=== PATIENT | male | born 1945 | race Caucasian/White ===

== ENCOUNTER 2016-12-06 06:07 | Inpatient (IN) | payer MEDICARE, BC ==
[2016-12-06] VITALS (16 sets, daily range): BP systolic 127–202; BP diastolic 65–101; PULSE 83–112; RESP 16–22; TEMP 97.8–98.5; O2SAT 95–99
[~2016-12-06] VITALS: Ht 180.3 cm; Wt 88.3 kg
[~2016-12-06 06:07] MED LIST: ALLO300T2 PO; ASPI325T PO; ENAL20TA PO; FENO50TA PO; GLUC750C PO; INDO50CA PO; METO25TA6 PO; MULT1TAB84 PO
[2016-12-06] MEDS ORDERED: SODIUM CHLORIDE 0.9% FLUSH 10 ML FLUSH IVF PRN (06:30)
[2016-12-06] MEDS ORDERED: FISH1000 (06:34)
[2016-12-06] MEDS ORDERED: MULTTAB67 PO (06:35)
--- NOTE | 2016-12-06 06:52 | RADRPT ---
EXAM DATE/TIME: 12/06/2016 06:32 [facility] COMPARISON: No previous studies available for comparison. INDICATIONS : Altered mental status, facial droop. RADIATION DOSE: 41.65 CTDIvol (mGy) MEDICAL HISTORY : Non-responsive. SURGICAL HISTORY : Non-responsive. ENCOUNTER: Initial ACUITY: 1 day PAIN SCALE: 0/10 LOCATION: cranial TECHNIQUE: Multiple contiguous axial images were obtained of the head. Using automated exposure control and adj ustment of the mA and/or kV according to patient size, radiation dose was kept as low as reasonably a chievable to obtain optimal diagnostic quality images. DICOM format image data is available electro nically for review and comparison. FINDINGS: CEREBRUM: The ventricles are normal for age. No evidence of midline shift, mass lesion, hemorrhage or acute in farction. No extra-axial fluid collections are seen. POSTERIOR FOSSA: The cerebellum and brainstem are intact. The 4th ventricle is midline. The cerebellopontine angle i s unremarkable. EXTRACRANIAL: The visualized portion of the orbits is intact. SKULL: The calvaria is intact. No evidence of skull fracture. CONCLUSION: Normal examination. Kwabena Lu MD on December 06, 2016 at 6:50 Board Certified Radiologist. This report was verified electronically.
--- NOTE | 2016-12-06 06:57 | PD ---
HPI Chief Complaint: Fall Time Seen by Provider: 06:16 Travel History International Travel<30 days: No Contact w/Intl Traveler<30days: No Traveled to known affect area: No History of Present Illness HPI The patient 71 years old. He woke up this morning and fell to the ground. His noticed slurred speech and therefore brought into the ER. In the ER we can observe nasolabial depression left side. Last seen normal was approximately 1 AM, four and a half hours prior to ER arrival. Location neurologic. Timing constant. Severity mild. The patient has a history of A. fib. He takes aspirin but no other anticoagulation. PFSH Past Medical History Arthritis: Yes (HX GOUT) Cardiovascular Problems: Yes (A-FIB, HTN) High Cholesterol: Yes Diminished Hearing: No Gastrointestinal Disorders: Yes (COLONSCOPY 2003) Medical other: Yes (PERITONITIS ) Tetanus Vaccination: > 5 Years Influenza Vaccination: Yes Past Surgical History Appendectomy: Yes Other Surgery: Yes (REMOVAL OF BENIGN CYST FROM UPPER BACK ) Social History Alcohol Use: Yes (DAILY ) Tobacco Use: No Substance Use: No Allergies-Medications (Allergen,Severity, Reaction): Coded Allergies: Percocet (Verified Allergy, Intermediate, 12/06/16) HEADACHE AND DIDN'T RELIEVE PAIN Lisinopril (Verified Adverse Reaction, Intermediate, palpitations that dont occur on enalapril, 12/06/16) Reported Meds & Prescriptions Reported Meds & Active Scripts Active Tricor (Fenofibrate) 145 Mg Tab 145 Mg PO DAILY Takw with food. Enalapril (Enalapril Maleate) 20 Mg Tab 20 Mg PO BID Reported Multiple Vitamin 1 Tab 1 Tab PO DAILY Fish Oil ([place]-3 Fatty Acids) 1,000 Mg Cap Glucosamine (Glucosamine Sulfate) 750 Mg Cap 750 Mg PO BID Indomethacin 50 Mg Cap 50 Mg PO TID Take with food, milk, or antacids to decrease stomach adverse effects. Aspirin 325 Mg Tab 325 Mg PO DAILY Metoprolol Succinate ER 24 HR (Metoprolol Succinate) 25 Mg Tab 25 Mg PO DAILY using 1/2 tab tid -38mg/d total dose Allopurinol 300 Mg Tab 300 Mg PO DAILY Review of Systems Except as stated in HPI: all other systems reviewed are Neg Physical Exam Narrative GENERAL: 71-year-old male well-nourished well-developed SKIN: Warm and dry. HEAD: Atraumatic. Normocephalic. EYES: Pupils equal and round. No scleral icterus. No injection or drainage. ENT: No nasal bleeding or discharge. Mucous membranes pink and moist. NECK: Trachea midline. No JVD. CARDIOVASCULAR: Tachycardia with a rate of 111, irregular rhythm. RESPIRATORY: No accessory muscle use. Clear to auscultation. Breath sounds equal bilaterally. GASTROINTESTINAL: Abdomen soft, non-tender, nondistended. Hepatic and splenic margins not palpable. MUSCULOSKELETAL: Extremities without clubbing, cyanosis, or edema. No obvious deformities. NEUROLOGICAL: Awake and alert. There is depression of the nasolabial fold on the left side. The patient's speech is normal. His memory mentation is normal. There is no upper or lower extremity motor deficit. PSYCHIATRIC: Appropriate mood and affect; insight and judgment normal. Data Data Last Documented VS Vital Signs Date Time Temp Pulse Resp B/P Pulse Ox O2 Delivery O2 Flow Rate FiO2 12/06/16 09:14 106 16 147/85 95 Nasal Cannula 2 12/06/16 06:10 98.1 Vital signs reviewed Orders Electrocardiogram (12/06/16 06:28) Prothrombin Time / Inr (Pt) (12/06/16 06:28) Act Partial Throm Time (Ptt) (12/06/16 06:28) Complete Blood Count With Diff (12/06/16 06:28) Basic Metabolic Panel (Bmp) (12/06/16 06:28) Creatine Kinase (Cpk) (12/06/16 06:28) Drug Screen, Random Urine (12/06/16 06:28) Troponin I (12/06/16 06:28) Urinalysis - C+S If Indicated (12/06/16 06:28) Ct Brain W/O Iv Contrast(Rout) (12/06/16 06:28) Chest, Single Ap (12/06/16 06:28) Ecg Monitoring (12/06/16 06:28) Iv Access Insert/Monitor (12/06/16 06:28) Oxygen Administration (12/06/16 06:28) Oximetry (12/06/16 06:28) Blood Glucose (12/06/16 06:28) Sodium Chloride 0.9% Flush (Ns Flush) (12/06/16 06:30) Nicardipine Inj (Cardene Inj) (12/06/16 06:43) Nicardipine Inj (Cardene Inj) (12/06/16 07:15) Mri Brain W/O Contrast (12/06/16 08:13) Mra Brain W/O Contrast (Cow) (12/06/16 08:13) Mra Carotids W Contrast (12/06/16 08:13) Consult Neurology (12/06/16 ) Consult Cardiology (12/06/16 ) (Hub Use Only)Inp Phy Cons/Ref (12/06/16 ) (Hub Use Only)Inp Phy Cons/Ref (12/06/16 ) Admit Order (Ed Use Only) (12/06/16 09:17) Labs Laboratory Tests Test 12/06/16 12/06/16 06:30 07:40 White Blood Count 7.0 TH/MM3 Red Blood Count 4.84 MIL/MM3 Hemoglobin 16.0 GM/DL Hematocrit 46.5 % Mean Corpuscular Volume 96.0 FL Mean Corpuscular Hemoglobin 33.0 PG Mean Corpuscular Hemoglobin 34.3 % Concent Red Cell Distribution Width 13.1 % Platelet Count 188 TH/MM3 Mean Platelet Volume 9.0 FL Neutrophils (%) (Auto) 75.8 % Lymphocytes (%) (Auto) 15.8 % Monocytes (%) (Auto) 6.1 % Eosinophils (%) (Auto) 1.5 % Basophils (%) (Auto) 0.8 % Neutrophils # (Auto) 5.3 TH/MM3 Lymphocytes # (Auto) 1.1 TH/MM3 Monocytes # (Auto) 0.4 TH/MM3 Eosinophils # (Auto) 0.1 TH/MM3 Basophils # (Auto) 0.1 TH/MM3 CBC Comment DIFF FINAL Differential Comment Prothrombin Time 11.5 SEC Prothromb Time International 1.0 RATIO Ratio Activated Partial 24.9 SEC Thromboplast Time Sodium Level 142 MEQ/L Potassium Level 3.6 MEQ/L Chloride Level 107 MEQ/L Carbon Dioxide Level 26.8 MEQ/L Anion Gap 8 MEQ/L Blood Urea Nitrogen 12 MG/DL Creatinine 0.76 MG/DL Estimat Glomerular Filtration 101 ML/MIN Rate Random Glucose 107 MG/DL Calcium Level 8.7 MG/DL Total Creatine Kinase 92 U/L Troponin I LESS THAN 0.02 NG/ML Urine Color LIGHT-YELLOW Urine Turbidity CLEAR Urine pH 6.5 Urine Specific [place] 1.006 Urine Protein TRACE mg/dL Urine Glucose (UA) NEG mg/dL Urine Ketones NEG mg/dL Urine Occult Blood NEG Urine Nitrite NEG Urine Bilirubin NEG Urine Urobilinogen LESS THAN 2.0 MG/DL Urine Leukocyte Esterase NEG Urine RBC LESS THAN 1 /hpf Urine WBC 1 /hpf Microscopic Urinalysis Comment CATH-CULT NOT IND Urine Opiates Screen NEG Urine Barbiturates Screen NEG Urine Amphetamines Screen NEG Urine Benzodiazepines Screen NEG Urine Cocaine Screen NEG Urine Cannabinoids Screen NEG MDM Medical Decision Making Medical Screen Exam Complete: Yes Emergency Medical Condition: Yes Medical Record Reviewed: Yes Differential Diagnosis Stroke, TIA, Jeffers's palsy, hypertensive encephalopathy Narrative Course CT head: No bleed The case discussed with oncoming provider at 7 AM to follow up blood work and admit to the medicine resident service. EKG reveals atrial fibrillation with a rate of [address] changes Devin Sanders MD Dec 06, 2016 06:57
[2016-12-06 06:58] LABS: AUTOMATED NEUTROPHIL # 5.3 TH/MM3 (1.8-7.7); BASOPHIL # 0.1 TH/MM3 (0-0.2); BASOPHIL % 0.8 % (0.0-2.0); EOSINOPHIL # 0.1 TH/MM3 (0-0.4); EOSINOPHIL % 1.5 % (0.0-4.0); HEMATOCRIT 46.5 % (39.0-51.0); HEMO FLAGS DIFF FINAL; LYMPH % 15.8 % (9.0-44.0); LYMPHOCYTE # 1.1 TH/MM3 (1.0-4.8); MEAN CORPUSCULAR HGB CONC 34.3 % (32.0-36.0); MONO % 6.1 % (0.0-8.0); NEUT % 75.8 % (16.0-70.0); PLATELET COUNT 188 TH/MM3 (150-450); RED BLOOD COUNT 4.84 MIL/MM3 (4.50-5.90); RED CELL DISTRIBUTION WIDTH 13.1 % (11.6-17.2)
--- NOTE | 2016-12-06 07:09 | RADRPT ---
EXAM DATE/TIME: 12/06/2016 06:46 [facility] COMPARISON: No previous studies available for comparison. INDICATIONS : Possible stroke , altered mental status with facial droop. MEDICAL HISTORY : None. SURGICAL HISTORY : None. ENCOUNTER: Initial ACUITY: 1 day PAIN SCORE: 3/10 LOCATION: Bilateral upper chest FINDINGS: The lungs are clear without infiltrate, nodule, or mass. There is no appreciable pleural effusion fo r technique. There are atherosclerotic calcifications of the aorta due to chronic atherosclerotic di sease. Borderline cardiomegaly seen. CONCLUSION: No acute cardiopulmonary disease and borderline cardiomegaly. Blane Knott MD on December 06, 2016 at 7:07 Board Certified Radiologist. This report was verified electronically.
[2016-12-06 07:10] LABS: APTT (PATIENT) 24.9 SEC (24.3-30.1); PROTHROMBIN TIME - PATIENT 11.5 SEC (9.8-11.6)
[2016-12-06] MEDS ORDERED: niCARdipine INJ 25 MG in SODIUM CHLOR 0.9% 250 ML INJ 250 ML IV SCH (07:15)
[2016-12-06 07:36] LABS: ANION GAP 8 MEQ/L (5-15); BICARBONATE 26.8 MEQ/L (21.0-32.0); BLOOD UREA NITROGEN 12 MG/DL (7-18); CHLORIDE 107 MEQ/L (98-107); GLOMERULAR FILTRATION RATE 101 ML/MIN (>89); POTASSIUM 3.6 MEQ/L (3.5-5.1); SODIUM (NA) 142 MEQ/L (136-145)
[2016-12-06 07:58] LABS: CREATINE KINASE 92 U/L (39-308)
[2016-12-06 08:04] LABS: BLOOD, URINE NEG (NEG); GLUCOSE,URINE NEG (NEG); KETONE, URINE NEG (NEG); NITRITE,URINE NEG (NEG); PH, URINE 6.5 (5.0-8.5); URINE COLOR LIGHT-YELLOW (YELLW/STRAW)
[2016-12-06 08:09] LABS: COMMENT (UR) CATH-CULT NOT IND; CULTURE IF INDICATED CATH CULTURE NOT IND
[2016-12-06 08:12] LABS: AMPHETAMINE, URINE NEG (NEG); BARBITURATES, URINE NEG (NEG); COCAINE, URINE NEG (NEG)
--- NOTE | 2016-12-06 08:12 | PD ---
Physical Exam Narrative Patient was seen by ED physician and signed out to me. Data Data Last Documented VS Vital Signs Date Time Temp Pulse Resp B/P Pulse Ox O2 Delivery O2 Flow Rate FiO2 12/06/16 06:49 91 16 190/91 97 Room Air 12/06/16 06:10 98.1 Orders Electrocardiogram (12/06/16 06:28) Prothrombin Time / Inr (Pt) (12/06/16 06:28) Act Partial Throm Time (Ptt) (12/06/16 06:28) Complete Blood Count With Diff (12/06/16 06:28) Basic Metabolic Panel (Bmp) (12/06/16 06:28) Creatine Kinase (Cpk) (12/06/16 06:28) Drug Screen, Random Urine (12/06/16 06:28) Troponin I (12/06/16 06:28) Urinalysis - C+S If Indicated (12/06/16 06:28) Ct Brain W/O Iv Contrast(Rout) (12/06/16 06:28) Chest, Single Ap (12/06/16 06:28) Ecg Monitoring (12/06/16 06:28) Iv Access Insert/Monitor (12/06/16 06:28) Oxygen Administration (12/06/16 06:28) Oximetry (12/06/16 06:28) Blood Glucose (12/06/16 06:28) Sodium Chloride 0.9% Flush (Ns Flush) (12/06/16 06:30) Nicardipine Inj (Cardene Inj) (12/06/16 06:43) Nicardipine Inj (Cardene Inj) (12/06/16 07:15) Labs Laboratory Tests Test 12/06/16 12/06/16 06:30 07:40 White Blood Count 7.0 TH/MM3 Red Blood Count 4.84 MIL/MM3 Hemoglobin 16.0 GM/DL Hematocrit 46.5 % Mean Corpuscular Volume 96.0 FL Mean Corpuscular Hemoglobin 33.0 PG Mean Corpuscular Hemoglobin 34.3 % Concent Red Cell Distribution Width 13.1 % Platelet Count 188 TH/MM3 Mean Platelet Volume 9.0 FL Neutrophils (%) (Auto) 75.8 % Lymphocytes (%) (Auto) 15.8 % Monocytes (%) (Auto) 6.1 % Eosinophils (%) (Auto) 1.5 % Basophils (%) (Auto) 0.8 % Neutrophils # (Auto) 5.3 TH/MM3 Lymphocytes # (Auto) 1.1 TH/MM3 Monocytes # (Auto) 0.4 TH/MM3 Eosinophils # (Auto) 0.1 TH/MM3 Basophils # (Auto) 0.1 TH/MM3 CBC Comment DIFF FINAL Differential Comment Prothrombin Time 11.5 SEC Prothromb Time International 1.0 RATIO Ratio Activated Partial 24.9 SEC Thromboplast Time Sodium Level 142 MEQ/L Potassium Level 3.6 MEQ/L Chloride Level 107 MEQ/L Carbon Dioxide Level 26.8 MEQ/L Anion Gap 8 MEQ/L Blood Urea Nitrogen 12 MG/DL Creatinine 0.76 MG/DL Estimat Glomerular Filtration 101 ML/MIN Rate Random Glucose 107 MG/DL Calcium Level 8.7 MG/DL Total Creatine Kinase 92 U/L Troponin I LESS THAN 0.02 NG/ML Urine Color LIGHT-YELLOW Urine Turbidity CLEAR Urine pH 6.5 Urine Specific [place] 1.006 Urine Protein TRACE mg/dL Urine Glucose (UA) NEG mg/dL Urine Ketones NEG mg/dL Urine Occult Blood NEG Urine Nitrite NEG Urine Bilirubin NEG Urine Urobilinogen LESS THAN 2.0 MG/DL Urine Leukocyte Esterase NEG Urine RBC LESS THAN 1 /hpf Urine WBC 1 /hpf Microscopic Urinalysis Comment CATH-CULT NOT IND MDM Supervised Visit with FRANCISCO: No Interpretation(s) Last Impressions Head CT 12/06/16627 Signed Impressions: Service Date/Time: Tuesday, December 06, 2016 06:32 - CONCLUSION: Normal examination. Kwabena Lu MD Chest X-Ray 12/06/16627 Signed Impressions: Service Date/Time: Tuesday, December 06, 2016 06:46 - CONCLUSION: No acute cardiopulmonary disease and borderline cardiomegaly. Blane Knott MD 8:11 AM. CBC within normal limit. BMP within normal limit. Cardiac enzymes are normal. UA is negative. Diagnosis Primary Impression: Acute CVA (cerebrovascular accident) Duc Spear MD Dec 06, 2016 08:12
--- NOTE | 2016-12-06 09:34 | HHI.HP ---
[facility] Service Family Medicine Primary Care Physician David Duffy MD Admission Diagnosis acute CVA Diagnoses: Chief Complaint: fall International Travel<30 Days: No Contact w/Intl Traveler<30days: No Known Affected Area: No History of Present Illness Patient is a 71-year-old male with history of atrial fibrillation and hypertension, presents after fall. Patient is accompanied by . They state that at 525 this morning, patient woke up. He went to walk to the bathroom and fell after getting out of bed. States he hit his side of his head and his knee on the rug. Denies any loss of consciousness. states that his speech was slurred and that he was dragging his foot. They also took his blood pressure at that time, and stated it was elevated 180s/100. At that time, brought him to the ED. He doesn't remember any weakness, and feels fine now. Denies any numbness or tingling. He feels his speech is back to normal, as does his . Denies any headache. Denies any trouble walking now, has been to the bathroom several times. No changes in vision. Has not had anything like this happen before. No history of stroke or DVT. Has a history of atrial fibrillation, and sees yardage control operator Dr. Patrick. He is currently on aspirin daily, but refuses oral anticoagulation due to concerns about reversal. Quit smoking 40 years ago. Denies any fever/chills, nausea/vomiting, chest pain, shortness of breath, leg pain. (Sanjiv Lcuas MD R1) Review of Systems Constitutional: DENIES: Fever, Weight loss, Chills, Dizziness Endocrine: DENIES: Heat/cold intolerance Eyes: DENIES: Diplopia, Eye pain, Vision loss Ears, nose, mouth, throat: DENIES: Hearing loss, Ear Pain Respiratory: DENIES: Cough, Shortness of breath Cardiovascular: COMPLAINS OF: Palpitations, DENIES: Chest pain, Syncope Gastrointestinal: DENIES: Abdominal pain, Black stools, Bloody stools, Constipation, Diarrhea, Nausea, Vomiting Genitourinary: DENIES: Urinary frequency, Dysuria Musculoskeletal: DENIES: Joint pain, Muscle aches Integumentary: DENIES: Pruritus, Rash Neurologic: DENIES: Abnormal gait, Headache, Localized weakness, Paresthesias, Seizures Psychiatric: DENIES: Confusion, Mood changes (Sanjiv Lucas MD R1) Past Family Social History Past Medical History HTN Afib HLD Arthritis Past Surgical History 12/10/01 Rt. Rotator cuff repair. Pt. was injured in a fall. 1999-Removal of benign fatty cyst from upper back 1991 and 1994 Cataract removal Removal of several sebaceous cysts and moles 1951ruptured appendix and peritonitis Reported Medications Reported Meds & Active Scripts Active Tricor (Fenofibrate) 145 Mg Tab 145 Mg PO DAILY Take with food. Enalapril (Enalapril Maleate) 20 Mg Tab 20 Mg PO BID Reported Multiple Vitamin 1 Tab 1 Tab PO DAILY Fish Oil ([place]-3 Fatty Acids) 1,000 Mg Cap Glucosamine (Glucosamine Sulfate) 750 Mg Cap 750 Mg PO BID Indomethacin 50 Mg Cap 50 Mg PO TID Take with food, milk, or antacids to decrease stomach adverse effects. Aspirin 325 Mg Tab 325 Mg PO DAILY Metoprolol Succinate ER 24 HR (Metoprolol Succinate) 25 Mg Tab 25 Mg PO DAILY using 1/2 tab tid -38mg/d total dose Allopurinol 300 Mg Tab 300 Mg PO DAILY (Sanjiv Lucas MD R1) Allergies: Coded Allergies: Percocet (Verified Allergy, Intermediate, 12/06/16) HEADACHE AND DIDN'T RELIEVE PAIN Lisinopril (Verified Adverse Reaction, Intermediate, palpitations that dont occur on enalapril, 12/06/16) Active Ordered Medications Active Medications Nicardipine HCl 25 mg 25 mg STK-MED ONCE .ROUTE; Start 12/06/16 at 06:43; Stop 12/06/16 at 06:44; Status DC Nicardipine HCl/ Sodium Chloride (Cardene Inj/NS 250 ml Inj) 260 ml @ 0 mls/hr TITRATE IV Last administered on 12/06/16t 07:10; Admin Dose 0 MLS/HR; Start at 07:15 Sodium Chloride (NS Flush) 2 ml UNSCH PRN IVF; Start 12/06/16 at 06:30 Family History No FH of stroke Father- of MS at age 63 Mother- at age 83 from respiratory failure, hx of HTN Social History Quit smoking 40years ago 2-3 beers/day Denies illicit drug use (Sanjiv Lucas MD R1) Physical Exam Vital Signs Vital Signs Date Time Temp Pulse Resp B/P Pulse Ox O2 Delivery O2 Flow Rate FiO2 12/06/16 09:14 106 16 147/85 95 Nasal Cannula 2 12/06/16 09:01 147/85 12/06/16 08:46 142/74 12/06/16 06:49 91 16 190/91 97 Room Air 12/06/16 06:35 98 Room Air 12/06/16 06:35 98 Room Air 12/06/16 06:27 110 18 202/100 99 Room Air 12/06/16 06:10 98.1 107 16 194/101 97 Physical Exam GENERAL: This is a well-nourished, well-developed patient, in no apparent distress. SKIN: No rashes, ecchymoses or lesions. Cool and dry. HEAD: Atraumatic. Normocephalic. No temporal or scalp tenderness. EYES: Pupils equal round and reactive. Extraocular motions intact. No scleral icterus. No injection or drainage. ENT: No nasal discharge. Throat without erythema, tonsillar hypertrophy or exudate. Uvula midline. Airway patent. NECK: Trachea midline. No JVD or lymphadenopathy. Supple, nontender. CARDIOVASCULAR: Tachycardic up to 110. Irregular rhythm. RESPIRATORY: Clear to auscultation. Breath sounds equal bilaterally. No wheezes , rales, or rhonchi. GASTROINTESTINAL: Abdomen soft, non-tender, nondistended. No hepato-splenomegaly , or palpable masses. No guarding. MUSCULOSKELETAL: Extremities without clubbing, cyanosis, or edema. No joint tenderness, effusion, or edema noted. No calf tenderness. NEUROLOGICAL: Awake and alert. Oriented x3. Speech- Fluent. No dysarthria or dysphasia. Good focus, attention, and comprehension. Cranial nerves- 2 through 12 intact. Face- Mild nasolabial fold depression on left side, no overt facial droop. No tongue deviation. 5/5 strength in all muscle groups, upper and lower extremities. sensation intact bilaterally. Reflexes symmetric bilaterally. No neglect. Able to repeat phrases. Able to perform heel to espinal. Laboratory Laboratory Tests Test 12/06/16 12/06/16 06:30 07:40 White Blood Count 7.0 Red Blood Count 4.84 Hemoglobin 16.0 Hematocrit 46.5 Mean Corpuscular Volume 96.0 Mean Corpuscular Hemoglobin 33.0 Mean Corpuscular Hemoglobin 34.3 Concent Red Cell Distribution Width 13.1 Platelet Count 188 Mean Platelet Volume 9.0 Neutrophils (%) (Auto) 75.8 Lymphocytes (%) (Auto) 15.8 Monocytes (%) (Auto) 6.1 Eosinophils (%) (Auto) 1.5 Basophils (%) (Auto) 0.8 Neutrophils # (Auto) 5.3 Lymphocytes # (Auto) 1.1 Monocytes # (Auto) 0.4 Eosinophils # (Auto) 0.1 Basophils # (Auto) 0.1 CBC Comment DIFF FINAL Differential Comment Prothrombin Time 11.5 Prothromb Time International 1.0 Ratio Activated Partial 24.9 Thromboplast Time Sodium Level 142 Potassium Level 3.6 Chloride Level 107 Carbon Dioxide Level 26.8 Anion Gap 8 Blood Urea Nitrogen 12 Creatinine 0.76 Estimat Glomerular Filtration 101 Rate Random Glucose 107 Calcium Level 8.7 Total Creatine Kinase 92 Troponin I LESS THAN 0.02 Urine Color LIGHT-YELLOW Urine Turbidity CLEAR Urine pH 6.5 Urine Specific [place] 1.006 Urine Protein TRACE Urine Glucose (UA) NEG Urine Ketones NEG Urine Occult Blood NEG Urine Nitrite NEG Urine Bilirubin NEG Urine Urobilinogen LESS THAN 2.0 Urine Leukocyte Esterase NEG Urine RBC LESS THAN 1 Urine WBC 1 Microscopic Urinalysis Comment CATH-CULT NOT IND Urine Opiates Screen NEG Urine Barbiturates Screen NEG Urine Amphetamines Screen NEG Urine Benzodiazepines Screen NEG Urine Cocaine Screen NEG Urine Cannabinoids Screen NEG (Sanjiv Lucas MD R1) Result Diagram: 12/06/1662912/06/16629 Imaging Last Impressions Head CT 12/06/16627 Signed Impressions: Service Date/Time: Tuesday, December 06, 2016 06:32 - CONCLUSION: Normal examination. Kwabena Lu MD Chest X-Ray 12/06/16627 Signed Impressions: Service Date/Time: Tuesday, December 06, 2016 06:46 - CONCLUSION: No acute cardiopulmonary disease and borderline cardiomegaly. Blane Knott MD (Sanjiv Lucas MD R1) Assessment and Plan Assessment and Plan 71-year-old male with history of atrial fibrillation hypertension, presents after a fall with neurological symptoms. Patient with resolving neurological symptoms, most likely consistent with a TIA. We'll admit for workup and management. Code Status Full Discussed Condition With Dr. Duffy (Sanjiv Lucas MD R1) Attending Attestation THIS CASE WAS DISCUSSED WITH THE RESIDENT PHYSICIANS. I HAVE REVIEWED THE RECORD AND AGREE WITH THE ABOVE NOTE AND PLAN OF CARE WAS DISCUSSED. I HAVE AUTHORIZED THE ORDER FOR ADMISSION TO AN IN-PATIENT STATUS. (David Duffy MD) Problem List: (1) Acute CVA (cerebrovascular accident) Status: Acute Plan: Symptoms first began at 525 this morning. Most of the reported symptoms have resolved. Vascular risk factors include age, HTN, A-fib, and h/o smoking. Patient also has just been on aspirin, and refusing oral anticoagulation. On exam, patient with minimal left nasal labial fold depression. Otherwise, neurologically intact. CT was negative for bleeding. ABCD2 score of 4 points, puts pt in moderate risk for future stroke. -MRI brain to r/o ischemic stroke. -MRA brain and carotids ordered. -EKG shows atrial fibrillation. Initial troponin normal; ACS rule-out ordered -2D ECHO -B/c CT scan negative, continue Aspirin 325mg daily -Start atorvastatin daily. -Neuro checks q4 hrs. -Telemetry -HOB flat for 12 hrs -Bedrest with fall precautions. -Consult neurology, rehab medicine, PT/OT/ST and case management. -If pt passes bedside swallow, will allow for heart healthy diet. (2) Atrial fibrillation Status: Chronic Plan: Pt with chronic history of atrial fibrillation. Taking Enalapril and Metoprolol at home. Currently on Aspirin 325mg daily. Sees Dr. Patrick as his yardage control operator. Refuses oral anticoagulation, due to concerns about reversal. Presented in atrial fibrillation, and could be the cause of his neurologic symptoms. [id number]-Omln score of 2 before today, 4 after TIA symptoms, indicating need fo anticoagulation -Cardiology consulted,appreciate recs -Dr. Patrick will see pt -Continue ASA -Therapeutic lovenox, discuss transition to oral agent -Pt on Nicardine drip to control rate, will continue, while allowing for permissive hypertension -See further plan above (3) Essential hypertension Status: Acute Plan: Pt's blood pressure up to 202/100 on admission. Takes enalapril and metoprolol at home. -Will allow for permissive HTN, due to acute CVA -Hold home HTN meds (4) FEN Status: Acute Plan: Fluids: none Electrolytes: wnl, continue to monitor Nutrition: NPO, until passes swallow study DVT ppx: Lovenox (Sanjiv Lucas MD R1) Physician Certification 2 Midnight Certification Type: Admission for Inpatient Services Order for Inpatient Services The services are ordered in accordance with Medicare regulations or non- Medicare payer requirements, as applicable. In the case of services not specified as inpatient-only, they are appropriately provided as inpatient services in accordance with the 2-midnight benchmark. Estimated LOS (days): 2 days is the estimated time the patient will need to remain in the hospital, assuming treatment plan goals are met and no additional complications. Post-Hospital Plan: Home (Sanjiv Lucas MD R1) Problem Qualifiers (1) Atrial fibrillation: Qualified Code: I48.2 - Chronic atrial fibrillation Sanjiv Lucas MD R1 Dec 06, 2016 09:34 David Duffy MD Dec 06, 2016 13:31
[2016-12-06] MEDS ORDERED: DEXTROSE 50% IN WATER 50 ML VIAL(D50) IV PUSH PRN (10:00)
[2016-12-06] MEDS ORDERED: GLUCAGON 1 MG/ML VIAL OTHER PRN (10:00)
[2016-12-06] MEDS ORDERED: SODIUM CHLORIDE 0.9% FLUSH 5 ML FLUSH IV FLUSH PRN (10:00)
[2016-12-06] MEDS ORDERED: ACETAMINOPHEN 325 MG TAB PO PRN (10:15)
[2016-12-06] MEDS ORDERED: GADODIAMIDE PF 287 MG/ML 20 ML VIAL (for RAD MRI) IV ONE (10:42)
[2016-12-06] MEDS: INSULIN ASPART SUPPLEMENTAL SCALE SQ SCH ×3 (11:00→21:00)
[2016-12-06] MEDS ORDERED: ENOXAPARIN SODIUM 40 MG/0.4 ML SYRINGE SQ SCH (11:00)
--- NOTE | 2016-12-06 11:05 | RADRPT ---
EXAM DATE/TIME: 12/06/2016 10:04 [facility] COMPARISON: CT BRAIN W/O CONTRAST, December 06, 2016, 6:32. INDICATIONS : Right facial droop. MEDICAL HISTORY : Hypertension. SURGICAL HISTORY : Appendectomy. ENCOUNTER: Initial ACUITY: 1 day PAIN SCORE: 0/10 LOCATION: cranial TECHNIQUE: Multiplanar, multisequence MRI of the brain was performed without contrast. FINDINGS: There are areas of abnormal diffusion capacity in the right temporal and parietal lobes characte ristic of acute infarction without hemorrhage or mass effect. Slight degree of brain atrophy is seen. Slight periventricular white matter changes are seen nonspecific mostly consistent with chronic smal l vessel ischemic changes. CONCLUSION: Acute infarction in the right parietal and temporal lobes without hemorrhage or mass effect. Blane Knott MD on December 06, 2016 at 11:01 Board Certified Radiologist. This report was verified electronically.
--- NOTE | 2016-12-06 11:06 | RADRPT ---
EXAM DATE/TIME: 12/06/2016 10:04 [facility] COMPARISON: MRA BRAIN W/O CONTRAST, December 06, 2016, 10:04. MRI BRAIN W/O CONTRAST, December 06, 2016, 10:04. INDICATIONS : Right facial droop. CONTRAST: 20 cc Omniscan (gadodiamide) IV MEDICAL HISTORY : Hypertension. SURGICAL HISTORY : Appendectomy. ENCOUNTER: Initial ACUITY: 1 day PAIN SCORE: 0/10 LOCATION: neck Percent stenosis is calculated using the diameter of the stenotic region over the diameter of the nor mal distal internal carotid artery. TECHNIQUE: Bolus infused MRA of the extracranial circulation was performed using a neurovascular coil. Post pro cessing was performed including rotating subvolume maximum intensity projections of each carotid lizeth ry, rotating full volume maximum intensity projections of both carotid arteries, sagittal and coronal sliding thin slab reformations of each carotid artery, and left oblique sliding thin slab reformatio n through the aortic arch to include the origin of the arch branch vessels. FINDINGS: AORTIC ARCH: There is a three vessel origin of the great vessels from the aorta. No evidence of ostial narrowing. RIGHT CAROTID: The common carotid artery is intact. The carotid bulb has a normal configuration without ulceration or narrowing. The internal carotid artery lumen is smooth without stenosis. The external carotid ar daysi is intact. LEFT CAROTID: The common carotid artery is intact. The carotid bulb has a normal configuration without ulceration or narrowing. The internal carotid artery lumen is smooth without stenosis. The external carotid ar daysi is intact. VERTEBRALS: The vertebral arteries have a symmetric diameter. No stenotic lesions are seen. CONCLUSION: Normal examination. Blane Knott MD on December 06, 2016 at 11:03 Board Certified Radiologist. This report was verified electronically.
--- NOTE | 2016-12-06 11:09 | RADRPT ---
EXAM DATE/TIME: 12/06/2016 10:04 [facility] COMPARISON: No previous studies available for comparison. INDICATIONS : Right facial droop. MEDICAL HISTORY : Hypertension. SURGICAL HISTORY : Appendectomy. ENCOUNTER: Initial ACUITY: 1 day PAIN SCORE: 0/10 LOCATION: cranial Please note a normal MRA of the brain does not entirely exclude the possibility of a small aneurysm, nor the possibility of distal intracranial vessel disease. TECHNIQUE: 3D time of flight MRA was performed. Source images, multiplanar STS MIP, and 3D volume MIP reconstru ctions were reviewed. FINDINGS: No significant vascular malformations, vessel truncation or aneurysmal dilatations are seen except fo r slight atherosclerotic changes involving multiple branches bilaterally mainly the MCAs left DOCUMENT CONTROL CLERK. CONCLUSION: Slight atherosclerotic changes of distal branches bilaterally, otherwise unremarkable . Blane Knott MD on December 06, 2016 at 11:04 Board Certified Radiologist. This report was verified electronically.
[2016-12-06] MEDS: ASPIRIN 325 MG TAB PO SCH (12:00)
--- NOTE | 2016-12-06 12:24 | EKG ---
Date Performed: 12/06/2016 Time Performed: 06:25:52 PTAGE: 71 years EKG: ATRIAL FIBRILLATION WITH RAPID VENTRICULAR RESPONSE NONSPECIFIC ST & T-WAVE ABNORMALITY ABN ORMAL RHYTHM ECG NO PREVIOUS TRACING DOCTOR: Kevin Fuchs Interpretating Date/Time 12/06/2016 12:20:20
[2016-12-06] MEDS ORDERED: ENOXAPARIN SODIUM 100 MG/ML SYRINGE SQ SCH (12:30)
--- NOTE | 2016-12-06 13:29 | HHI.HP ---
[facility] Service Family Medicine Primary Care Physician David Duffy MD Admission Diagnosis acute CVA Diagnoses: (1) Acute CVA (cerebrovascular accident) (2) Atrial fibrillation (3) Essential hypertension (4) FEN International Travel<30 Days: No Contact w/Intl Traveler<30days: No Known Affected Area: No History of Present Illness 71-year-old male presented to the emergency department after a fall at home and noted left-sided weakness. He was apparently in normal health at approximately 1 AM when he went to bed, at 545 this morning he attempted to get out of bed and fell out of bed, hitting the side of his head and knee on the rug. Patient denies any loss of consciousness. At this time, states that his speech was slurred and that he was dragging his left foot. He also took his blood pressure at that time and stated that it was 180/100 and therefore brought him into the emergency department for evaluation of stroke. Since admission to the emergency department, states that his speech has returned to normal but continues to notice left-sided facial droop. Filippo himself has stated that he feels well at this time, that he feels back to normal. He denies any unilateral weakness, he denies any headaches, denies vision changes or double vision, denies nausea or vomiting, denies chest pain or palpitations. He has been out of bed and walk to the bathroom on his own without any difficulty. He has a history of atrial fibrillation for which she follows with Dr. Patrick. It had been recommended to him to be on anticoagulant therapy, however he has refused this in the past and is currently only taking a baby aspirin daily. He also has been instructed that he could benefit from statin therapy but has refused this in the past as well. Otherwise he has been a relatively healthy gentleman and has been very active. Review of Systems Eyes: DENIES: Blurred vision, Diplopia, Vision loss, Double Vision Ears, nose, mouth, throat: DENIES: Tinnitus, Vertigo, Hoarseness Respiratory: DENIES: Cough, Wheezing, Sputum production, Shortness of breath Cardiovascular: DENIES: Chest pain, Palpitations, Syncope, Dyspnea on Exertion , Lower Extremity Edema Gastrointestinal: DENIES: Abdominal pain, Nausea, Vomiting, Difficulty Swallowing Hematologic/lymphatic: DENIES: Bruising Neurologic: DENIES: Abnormal gait, Headache, Localized weakness, Paresthesias, Seizures, Speech Problems, Poor Balance Past Family Social History Past Medical History HTN Afib HLD Arthritis Past Surgical History 12/10/01 Rt. Rotator cuff repair. Pt. was injured in a fall. 1999-Removal of benign fatty cyst from upper back 1991 and 1994 Cataract removal Removal of several sebaceous cysts and moles 1951ruptured appendix and peritonitis Allergies: Coded Allergies: Percocet (Verified Allergy, Intermediate, 12/06/16) HEADACHE AND DIDN'T RELIEVE PAIN Lisinopril (Verified Adverse Reaction, Intermediate, palpitations that dont occur on enalapril, 12/06/16) Family History No FH of stroke Father- of [place] at age 63 Mother- at age 83 from respiratory failure, hx of HTN Social History Quit smoking 40years ago 2-3 beers/day Denies illicit drug use Physical Exam Vital Signs Vital Signs Date Time Temp Pulse Resp B/P Pulse Ox O2 Delivery O2 Flow Rate FiO2 12/06/16 12:26 112 20 148/75 98 Nasal Cannula 2 12/06/16 10:37 105 16 158/83 97 Nasal Cannula 2 12/06/16 10:10 108 16 127/65 97 Nasal Cannula 2 12/06/16 09:14 106 16 147/85 95 Nasal Cannula 2 12/06/16 09:01 147/85 12/06/16 08:46 142/74 12/06/16 06:49 91 16 190/91 97 Room Air 12/06/16 06:35 98 Room Air 12/06/16 06:35 98 Room Air 12/06/16 06:27 110 18 202/100 99 Room Air 12/06/16 06:10 98.1 107 16 194/101 97 Physical Exam GENERAL: This is a well-nourished, well-developed patient, in no apparent distress. SKIN: Abrasions over bilateral knees HEAD: Atraumatic. Normocephalic. EYES: Pupils equal round and reactive. Extraocular motions intact. No scleral icterus. No injection or drainage. NECK: Trachea midline. No JVD or lymphadenopathy. Supple, nontender. CARDIOVASCULAR: Tachycardic up to 105 while in room. Irregular rhythm. RESPIRATORY: Clear to auscultation. Breath sounds equal bilaterally. No wheezes , rales, or rhonchi. GASTROINTESTINAL: Abdomen soft, non-tender, nondistended. MUSCULOSKELETAL: Extremities without clubbing, cyanosis, or edema. NEUROLOGICAL: Awake and alert. Oriented x3. Speech- Fluent. No dysarthria or dysphasia. Good focus, attention, and comprehension. Cranial nerves- 2 through 12 intact. Face- Mild nasolabial fold depression on left side, no overt facial droop. No tongue deviation. 5/5 strength in all muscle groups, upper and lower extremities. sensation intact bilaterally. Reflexes symmetric bilaterally. No neglect. Able to repeat phrases. Able to perform heel to espinal. Negative pronator drift Laboratory Laboratory Tests Test 12/06/16 12/06/16 06:30 07:40 White Blood Count 7.0 Red Blood Count 4.84 Hemoglobin 16.0 Hematocrit 46.5 Mean Corpuscular Volume 96.0 Mean Corpuscular Hemoglobin 33.0 Mean Corpuscular Hemoglobin 34.3 Concent Red Cell Distribution Width 13.1 Platelet Count 188 Mean Platelet Volume 9.0 Neutrophils (%) (Auto) 75.8 Lymphocytes (%) (Auto) 15.8 Monocytes (%) (Auto) 6.1 Eosinophils (%) (Auto) 1.5 Basophils (%) (Auto) 0.8 Neutrophils # (Auto) 5.3 Lymphocytes # (Auto) 1.1 Monocytes # (Auto) 0.4 Eosinophils # (Auto) 0.1 Basophils # (Auto) 0.1 CBC Comment DIFF FINAL Differential Comment Prothrombin Time 11.5 Prothromb Time International 1.0 Ratio Activated Partial 24.9 Thromboplast Time Sodium Level 142 Potassium Level 3.6 Chloride Level 107 Carbon Dioxide Level 26.8 Anion Gap 8 Blood Urea Nitrogen 12 Creatinine 0.76 Estimat Glomerular Filtration 101 Rate Random Glucose 107 Calcium Level 8.7 Total Creatine Kinase 92 Troponin I LESS THAN 0.02 Urine Color LIGHT-YELLOW Urine Turbidity CLEAR Urine pH 6.5 Urine Specific [place] 1.006 Urine Protein TRACE Urine Glucose (UA) NEG Urine Ketones NEG Urine Occult Blood NEG Urine Nitrite NEG Urine Bilirubin NEG Urine Urobilinogen LESS THAN 2.0 Urine Leukocyte Esterase NEG Urine RBC LESS THAN 1 Urine WBC 1 Microscopic Urinalysis Comment CATH-CULT NOT IND Urine Opiates Screen NEG Urine Barbiturates Screen NEG Urine Amphetamines Screen NEG Urine Benzodiazepines Screen NEG Urine Cocaine Screen NEG Urine Cannabinoids Screen NEG Result Diagram: 7/22/17 0630 7/22/17 0630 Imaging Last 48 hours Impressions Neck Magnetic Resonance Angiography 12/06/16812 Signed Impressions: Service Date/Time: Tuesday, December 06, 2016 10:04 - CONCLUSION: Normal examination. Blane Knott MD Head Magnetic Resonance Angiography 12/06/16812 Signed Impressions: Service Date/Time: Tuesday, December 06, 2016 10:04 - CONCLUSION: Slight atherosclerotic changes of distal branches bilaterally, otherwise unremarkable. Blane Knott MD Brain MRI 12/06/16812 Signed Impressions: Service Date/Time: Tuesday, December 06, 2016 10:04 - CONCLUSION: Acute infarction in the right parietal and temporal lobes without hemorrhage or mass effect. Blane Knott MD Head CT 12/06/16627 Signed Impressions: Service Date/Time: Tuesday, December 06, 2016 06:32 - CONCLUSION: Normal examination. Kwabena Lu MD Chest X-Ray 12/06/16627 Signed Impressions: Service Date/Time: Tuesday, December 06, 2016 06:46 - CONCLUSION: No acute cardiopulmonary disease and borderline cardiomegaly. Blane Knott MD Assessment and Plan Assessment and Plan 71-year-old male with history of atrial fibrillation and hypertension presents to the hospital with an acute CVA Problem List: (1) Acute CVA (cerebrovascular accident) Status: Acute Plan: MRI verified with acute infarction in the right parietal and temporal lobes without hemorrhage or mass effect Acute CVA precautions/treatment as below: - Neurology consulted - Neurochecks every 4 hours - Seizure precautions - Permissive hypertension - Monitor on telemetry - Echocardiogram ordered - PT/OT/speech therapy consulted - Nothing by mouth until cleared by speech therapy - Therapeutic Lovenox 1 mg/kilogram twice a day - Atorvastatin 40 mg by mouth daily Patient would benefit from continue statin therapy and anticoagulation upon discharge given history of atrial fibrillation and now confirmed diagnosis of stroke on MRI Workup thus far has included: Head CT: Normal examination Chest x-ray: No acute cardiopulmonary disease and borderline cardiomegaly Neck MRA: Normal examination Head MRA: Slight atherosclerotic changes of distal branches bilaterally, otherwise unremarkable Brain MRI: Acute infarction in the right parietal and temporal lobes without hemorrhage or mass effect Lab work done on 09/02/16 shows: Lipid panel: Total cholesterol 187, HDL 53, triglycerides 68, LDL 120 Hemoglobin A1c: 4.9% (2) Atrial fibrillation Status: Chronic Plan: Pt with chronic history of atrial fibrillation. Taking Enalapril and Metoprolol at home. Currently on Aspirin 325mg daily. 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 Refuses oral anticoagulation, due to concerns about reversal. Presented in atrial fibrillation, and could be the cause of his neurologic symptoms. [id number] score of 2 before today, 4 after TIA symptoms, indicating need fo anticoagulation -Cardiology consulted,appreciate recs -Dr. Patrick will see pt -Continue ASA -Therapeutic lovenox, discuss transition to oral agent -Pt on Nicardine drip to control rate, will continue, while allowing for permissive hypertension - Consider digoxin if heart rate continues to be elevated -See further plan above (3) Essential hypertension Status: Acute Plan: Pt's blood pressure up to 202/100 on admission. Takes enalapril and metoprolol at home. -Will allow for permissive HTN, due to acute CVA -Hold home HTN meds (4) FEN Status: Acute Plan: Fluids: none Electrolytes: wnl, continue to monitor Nutrition: NPO, until passes swallow study DVT ppx: Lovenox Physician Certification 2 Midnight Certification Type: Admission for Inpatient Services Order for Inpatient Services The services are ordered in accordance with Medicare regulations or non- Medicare payer requirements, as applicable. In the case of services not specified as inpatient-only, they are appropriately provided as inpatient services in accordance with the 2-midnight benchmark. Estimated LOS (days): 2 2 days is the estimated time the patient will need to remain in the hospital, assuming treatment plan goals are met and no additional complications. Post-Hospital Plan: Not yet determined Problem Qualifiers (1) Atrial fibrillation: Qualified Code: I48.2 - Chronic atrial fibrillation David Duffy MD Dec 06, 2016 13:29
[2016-12-06] MEDS ORDERED: METOPROLOL SUCCINATE 25 MG EXTENDED RELEASE TAB PO ONE (14:15)
[2016-12-06] MEDS ORDERED: PILL SPLITTER OTHER PRN (14:15)
[2016-12-06] MEDS: niCARdipine INJ 25 MG in SODIUM CHLOR 0.9% 250 ML INJ 250 ML IV SCH (14:48)
--- NOTE | 2016-12-06 16:08 | MB ---
cc: SACHI COLEMAN MD DATE OF CONSULTATION: 12/06/2016. REASON FOR CONSULTATION: Atrial fibrillation. HISTORY OF PRESENT ILLNESS: Mr. Bartlett is a 71-year-old patient of mine who does have a history of hypertension, hyperlipidemia and atrial fibrillation. The patient has had a history of atrial fibrillation and a [id number] score of 2. He elected to stay on aspirin despite the current guidelines that suggested a stronger anticoagulation. The patient today fell getting out of bed and had some neurologic deficits that included slurred speech and dragging his foot. The insisted on him coming to the emergency room. She notes that his blood pressure at that time was in the 180s/100s. The patient denies any other cardiac complaints. OUTPATIENT MEDICATIONS: 1. Allopurinol. 2. Aspirin. 3. Enalapril 20 milligrams twice a day. 4. Fish oil. 5. Glucosamine. 6. Toprol XL 37.5 milligrams a day. 7. Tricor. ALLERGIES: PERCOCET. FAMILY HISTORY: Myocardial infarction. SOCIAL HISTORY: The patient is . He is a former smoker. REVIEW OF SYSTEMS: Except for what is mentioned in the history of present illness, all twelve systems are negative. PHYSICAL EXAMINATION: VITAL SIGNS: On physical exam, current vital signs are 112, 20, 148/75. Earlier, his blood pressure was 202/100. GENERAL: In general, he is a well-appearing man who is in no apparent distress. NECK: The neck is free from jugular venous distention. LUNGS: The lungs are bilaterally clear to auscultation. CARDIOVASCULAR: On cardiovascular examination, he has an irregularly irregular rhythm. No rubs or gallops were appreciated. ABDOMEN: The abdomen is soft. EXTREMITIES: Free from edema. Telemetry shows atrial fibrillation with rapid ventricular rate at 113 beats per minute. LAB VALUES: Significant for: Creatinine 0.75. Serial troponins of less than 0.02 / less than 0.02. IMAGING STUDIES: Brain MRI does show an acute right parietal and temporal lobe infarct without hemorrhage or mass effect. IMPRESSIONS: 1. Atrial fibrillation - the patient does have a history of the same. He in the past has refused stronger anticoagulation on aspirin. We again had the discussion today about stronger anticoagulation and he is still reluctant, but now is agreeable. After a long discussion on the risks, benefits, and alternatives of aspirin versus Coumadin versus new oral agent, the patient is agreeable to Pradaxa when it is felt appropriate by neurology. 2. Hypertension - I would like to re-start his Toprol and Enalapril for both blood pressure and heart rate control. The Nicardipine can be weaned. 3. CVA - this is being managed by the primary team and neurology. Sachi Coleman M.D. STEVIE/IAN /2:05 PM /4:04 PM
[2016-12-06] MEDS: ENALAPRIL MALEATE 10 MG TAB PO SCH ×2 (16:24→20:38)
[2016-12-06 19:56] LABS: ALT (GPT) 31 U/L (12-78); AST (GOT) 27 U/L (15-37)
[2016-12-06 19:59] LABS: ALKALINE PHOSPHATASE 47 U/L (45-117); INDIRECT BILIRUBIN 0.8 MG/DL (0.0-0.8); TOTAL BILIRUBIN ADULT 1.1 MG/DL (0.2-1.0)
[2016-12-06] MEDS: ATORVASTATIN 40 MG TAB PO SCH (20:38)
[2016-12-06] MEDS: SODIUM CHLORIDE 0.9% FLUSH 5 ML FLUSH IV FLUSH SCH (20:39)
--- NOTE | 2016-12-06 23:20 | MB ---
cc: THEE ALBERTS MD DATE OF CONSULTATION 12/06/16 REASON FOR CONSULTATION Stroke. HISTORY OF PRESENT ILLNESS Mr. Bartlett is a 71-year-old male who presented to the [facility] Emergency Department after he fell at home and noted left-sided weakness. The patient states that he went to go to the restroom and he fell and his noticed that he had left-sided weakness. The patient denies any loss of consciousness, dizziness, however, the as per medical record states that his speech was slurred and he was dragging his left foot. Blood pressure at that time was 180/100. Therefore, she brought him to the emergency room for evaluation of stroke. The patient states that he is on aspirin 325 milligrams at home. He denies a similar episode in the past. In the emergency room he was noticed that his speech was almost back to normal but continues to have left-sided facial droop. He denies headache, lightheadedness, blurred vision, double vision, loss of consciousness. The patient has history of atrial fibrillation. He follows with a avaya engineer. She recommended to him to be on anticoagulant therapy. However, he refused in the past. Also, statin therapy was recommended and he refused. REVIEW OF SYSTEMS A 12-point review of systems was negative except for what is stated in the HPI. PAST MEDICAL HISTORY Hypertension, hyperlipidemia, arthritis. PAST SURGICAL HISTORY Right rotator cuff repair, removal of benign fatty cyst from the upper back, cataract removal. Ruptured appendix and peritonitis. ALLERGIES PERCOCET AND LISINOPRIL. FAMILY HISTORY Father of [place]. Mother of respiratory failure. SOCIAL HISTORY Quit smoking 40 years ago. Drinks two to three beers a day. Denies illicit drug use. PHYSICAL EXAMINATION GENERAL: Awake, alert, good historian, pleasant, not in acute distress HEENT: Atraumatic, normocephalic. Intact hearing and intact vision. NECK: Trachea in the midline. No carotid bruits. Supple. CARDIOVASCULAR: Irregular rhythm with tachycardia. Regular, irregular. RESPIRATORY: Clear to auscultation. No wheezes. MUSCULOSKELETAL: Without cyanosis, clubbing or edema. NEUROLOGIC: Awake, alert, oriented to time, person and place. Mild dysarthria. No dysphasia. Intact external ocular motility. Pupils bilateral symmetrical, reacting to light. Mild left facial weakness. Upper extremity 5/5, bilateral symmetrical. Normal tone. Lower extremity 5-/5; left foot dorsiflexion otherwise 5/5. No abnormal movement. Sensation is intact bilateral and symmetrical. Reflexes 2+ bilateral symmetrical. Plantars bilaterally downgoing. Cerebellar signs are intact. PSYCHIATRIC: Calm and intact mood and behavior. No hallucinations. LABORATORY DATA White blood cells 7, hemoglobin 16, platelets 188, INR 1, sodium 142, potassium 3.6, anion gap 8, BUN 12, creatinine 0.76. IMAGING STUDIES - Head CT scan without contrast was reported as a normal examination. - Brain MRI without contrast revealed acute infarction in the right parietal and temporal lobes without hemorrhage or mass effect. - Head MRA without contrast, revealed slight sclerotic changes of distal branches bilaterally, otherwise, unremarkable. - Neck MRA revealed vertebral arteries have symmetric diameter.No stenosis is seen. ICA are normal. CARDIOLOGY STUDIES - EKG revealed atrial fibrillation with RVR. DIAGNOSTIC IMPRESSION 1. Acute ischemic infarction. 2. Hypertension. 3. Atrial fibrillation. 4. Hyperlipidemia. PLAN 1. Neuro checks q. four hourly. 2. The patient needs to be on anticoagulation given the atrial fibrillation and recent stroke, consider cardiology recommendations in this regards 5. DVT prophylaxis. 6. PT, OT recommendations are appreciated. 7. Thank you for the opportunity to participate in the care of your patient. MD LALITA Flores/SAMUEL /10:22 PM /10:50 PM SHARLENE
[2016-12-07] MEDS ORDERED: ENOXAPARIN SODIUM 100 MG/ML SYRINGE SQ SCH
[2016-12-07] MEDS: niCARdipine INJ 25 MG in SODIUM CHLOR 0.9% 250 ML INJ 250 ML IV SCH (00:22)
[2016-12-07 03:00] VITALS: BP 141/86; PULSE 76; RESP 18; TEMP 97.9; O2SAT 96
[2016-12-07 04:44] LABS: AUTOMATED NEUTROPHIL # 8.6 TH/MM3 (1.8-7.7); BASOPHIL # 0.1 TH/MM3 (0-0.2); BASOPHIL % 0.5 % (0.0-2.0); EOSINOPHIL # 0.1 TH/MM3 (0-0.4); EOSINOPHIL % 0.6 % (0.0-4.0); HEMATOCRIT 43.9 % (39.0-51.0); HEMO FLAGS DIFF FINAL; LYMPH % 10.4 % (9.0-44.0); LYMPHOCYTE # 1.1 TH/MM3 (1.0-4.8); MEAN CELL VOLUME 94.8 FL (80.0-100.0); MEAN CORPUSCULAR HEMOGLOBIN 33.1 PG (27.0-34.0); MEAN CORPUSCULAR HGB CONC 34.9 % (32.0-36.0); NEUT % 81.5 % (16.0-70.0); PLATELET COUNT 190 TH/MM3 (150-450); RED BLOOD COUNT 4.64 MIL/MM3 (4.50-5.90); RED CELL DISTRIBUTION WIDTH 13.1 % (11.6-17.2); WHITE BLOOD COUNT 10.5 TH/MM3 (4.0-11.0)
[2016-12-07 05:12] LABS: HDL CHOLESTEROL 46.4 MG/DL (40.0-60.0)
[2016-12-07 07:00] VITALS: BP 169/106; PULSE 75; PULSE 82; RESP 16; TEMP 98; O2SAT 97
[2016-12-07] MEDS: INSULIN ASPART SUPPLEMENTAL SCALE SQ SCH ×4 (07:00→21:00)
[2016-12-07] MEDS: ENALAPRIL MALEATE 10 MG TAB PO SCH ×2 (08:46→20:37)
[2016-12-07] MEDS: ALLOPURINOL 300 MG TAB PO SCH (08:46)
[2016-12-07] MEDS: ASPIRIN 325 MG TAB PO SCH (08:47)
[2016-12-07] MEDS: METOPROLOL SUCCINATE 25 MG EXTENDED RELEASE TAB PO SCH (08:47)
[2016-12-07] MEDS: SODIUM CHLORIDE 0.9% FLUSH 5 ML FLUSH IV FLUSH SCH ×2 (08:48→20:37)
--- NOTE | 2016-12-07 10:11 | PD.CARD.PN ---
Subjective Subjective Remarks Pt without complaints Objective Medications Current Medications Medications (Trade) Dose Ordered Sig/Chandra Route Start Time Stop Time Status Last Admin (NS Flush) 2 ml BID IV FLUSH 12/06/16 21:00 12/07/16 08:48 (NS Flush) 2 ml UNSCH PRN IV FLUSH 12/06/16 10:00 (Aspirin) 325 mg DAILY PO 12/06/16 12:00 12/07/16 08:47 (Lipitor) 40 mg HS PO 12/06/16 21:00 12/06/16 20:38 (NovoLOG SUPPLEMENTAL SCALE) 1 ACHS SQ 12/06/16 11:00 (D50w (Vial) Inj) 50 ml UNSCH PRN IV PUSH 12/06/16 10:00 (Glucagon Inj) 1 mg UNSCH PRN OTHER 12/06/16 10:00 (Tylenol) 325 mg Q4H PRN PO 12/06/16 10:15 Allopurinol 300 mg 300 mg DAILY PO 12/07/16 09:00 12/07/16 08:46 (Cardene Inj/NS 250 ml Inj) 260 ml @ 0 mls/hr TITRATE IV 12/06/16 11:45 12/07/16 00:22 (Toprol Xl) 37.5 mg DAILY PO 12/07/16 09:00 12/07/16 08:47 (Vasotec) 10 mg BID PO 12/06/16 14:15 12/07/16 08:46 (Pill Splitter) 1 ea UNSCH PRN OTHER 12/06/16 14:15 (Lovenox Inj) 90 mg Q12H SQ 12/07/16 00:00 12/06/16 23:54 Vital Signs / I&O Vital Signs Date Time Temp Pulse Resp B/P Pulse Ox O2 Delivery O2 Flow Rate FiO2 12/07/16 07:00 98.0 75 16 169/106 97 12/07/16 07:00 82 12/07/16 03:00 97.9 76 18 141/86 96 12/07/16 03:00 76 12/06/16 23:00 98.3 83 18 144/80 95 12/06/16 23:00 83 12/06/16 22:05 95 21 12/06/16 19:00 95 12/06/16 19:00 97.8 95 22 165/84 95 12/06/16 17:06 96 21 12/06/16 15:00 109 12/06/16 15:00 98.5 100 18 159/96 98 12/06/16 14:16 100 18 159/74 98 Nasal Cannula 2 12/06/16 12:26 112 20 148/75 98 Nasal Cannula 2 12/06/16 10:37 105 16 158/83 97 Nasal Cannula 2 12/06/16 10:10 108 16 127/65 97 Nasal Cannula 2 I/O 12/06/16 12/06/16 12/06/16 12/07/16 12/07/16 12/07/16 07:00 15:00 23:00 07:00 15:00 23:00 Intake Total 576 ml 417 ml Output Total 500 ml Balance 76 ml 417 ml Intake Oral 120 ml 250 ml IV Total 456 ml 167 ml Output Urine Total 500 ml # Voids 5 2 # Bowel Movements 0 0 Physical Exam GENERAL: Well developed, well nourished. No acute distress. HEENT: Jugular venous pressure is normal. CHEST: Lungs clear to auscultation bilaterally. Unlabored respiratory effort. CARDIAC: irregular rate and rhythm without S3, S4, or murmur. ABDOMEN: Soft, nontender, no hepatosplenomegaly. Bowel sounds present. EXTREMITIES: No clubbing, cyanosis, or edema. Laboratory Laboratory Tests Test 12/06/16 12/06/16 12/07/16 12:35 18:52 04:21 Troponin I LESS THAN 0.02 LESS THAN 0.02 NG/ML NG/ML Total Bilirubin 1.1 MG/DL Direct Bilirubin 0.3 MG/DL Indirect Bilirubin 0.8 MG/DL Aspartate Amino Transf 27 U/L (AST/SGOT) Alanine Aminotransferase 31 U/L (ALT/SGPT) Alkaline Phosphatase 47 U/L Total Protein 8.2 GM/DL Albumin 4.0 GM/DL White Blood Count 10.5 TH/MM3 Red Blood Count 4.64 MIL/MM3 Hemoglobin 15.3 GM/DL Hematocrit 43.9 % Mean Corpuscular Volume 94.8 FL Mean Corpuscular Hemoglobin 33.1 PG Mean Corpuscular Hemoglobin 34.9 % Concent Red Cell Distribution Width 13.1 % Platelet Count 190 TH/MM3 Mean Platelet Volume 8.7 FL Neutrophils (%) (Auto) 81.5 % Lymphocytes (%) (Auto) 10.4 % Monocytes (%) (Auto) 7.0 % Eosinophils (%) (Auto) 0.6 % Basophils (%) (Auto) 0.5 % Neutrophils # (Auto) 8.6 TH/MM3 Lymphocytes # (Auto) 1.1 TH/MM3 Monocytes # (Auto) 0.7 TH/MM3 Eosinophils # (Auto) 0.1 TH/MM3 Basophils # (Auto) 0.1 TH/MM3 CBC Comment DIFF FINAL Differential Comment Sodium Level 140 MEQ/L Potassium Level 3.0 MEQ/L Chloride Level 106 MEQ/L Carbon Dioxide Level 24.0 MEQ/L Anion Gap 10 MEQ/L Blood Urea Nitrogen 9 MG/DL Creatinine 0.61 MG/DL Estimat Glomerular Filtration 130 ML/MIN Rate Random Glucose 103 MG/DL Calcium Level 8.7 MG/DL Triglycerides Level 121 MG/DL Cholesterol Level 179 MG/DL LDL Cholesterol 108 MG/DL HDL Cholesterol 46.4 MG/DL Cholesterol/HDL Ratio 3.85 RATIO Imaging Last 72 hours Impressions Neck Magnetic Resonance Angiography 12/06/16812 Signed Impressions: Service Date/Time: Tuesday, December 06, 2016 10:04 - CONCLUSION: Normal examination. Blane Knott MD Head Magnetic Resonance Angiography 12/06/16812 Signed Impressions: Service Date/Time: Tuesday, December 06, 2016 10:04 - CONCLUSION: Slight atherosclerotic changes of distal branches bilaterally, otherwise unremarkable. Blane Knott MD Brain MRI 12/06/16812 Signed Impressions: Service Date/Time: Tuesday, December 06, 2016 10:04 - CONCLUSION: Acute infarction in the right parietal and temporal lobes without hemorrhage or mass effect. Blane Knott MD Head CT 12/06/16627 Signed Impressions: Service Date/Time: Tuesday, December 06, 2016 06:32 - CONCLUSION: Normal examination. Kwabena Lu MD Chest X-Ray 12/06/16627 Signed Impressions: Service Date/Time: Tuesday, December 06, 2016 06:46 - CONCLUSION: No acute cardiopulmonary disease and borderline cardiomegaly. Blane Knott MD Assessment and Plan Assessment and Plan AF- good rate control - change to pradaxa; stop lovenox HTN- a bit high today, increase enalapril back to full/home dose -add amlodipine Hypokalemia- supplement potassium and bmp in am CVA- per neruology Dispo- ok for floors from CV perspective Terra Patrick MD Dec 07, 2016 10:11
[2016-12-07] MEDS ORDERED: POTASSIUM CHLORIDE 25 MEQ EFFERVESCENT TAB PO ONE ×2 (10:15→12:15)
[2016-12-07] MEDS ORDERED: ENALAPRIL MALEATE 10 MG TAB PO ONE (10:15)
[2016-12-07 11:00] VITALS: BP 162/97; PULSE 73; PULSE 84; RESP 18; TEMP 98.1; O2SAT 97
[2016-12-07 11:42] VITALS: O2SAT 96
[2016-12-07] MEDS: amLODIPine BESYLATE 5 MG TAB PO SCH (11:52)
[2016-12-07] MEDS: DABIGATRAN ETEXILATE 150 MG CAP PO SCH ×2 (11:52→20:37)
[2016-12-07 12:39] LABS: HEMOGLOBIN A1b 1.5 %; HEMOGLOBIN Ao 86.4 %; HEMOGLOBIN LA1C 1.7 %; HEMOGLOBIN P3 3.6 %
--- NOTE | 2016-12-07 14:24 | HHI.FPPN ---
Subjective Remarks No acute events overnight. Blood pressure ran [id number]/[id number]. Patient is not in any pain, no other complaints. (Gabby Monge MD R1) Objective Vitals Vital Signs Date Time Temp Pulse Resp B/P Pulse Ox O2 Delivery O2 Flow Rate FiO2 12/07/16 11:42 96 21 12/07/16 11:00 98.1 73 18 162/97 97 12/07/16 11:00 84 12/07/16 07:00 98.0 75 16 169/106 97 12/07/16 07:00 82 12/07/16 03:00 97.9 76 18 141/86 96 12/07/16 03:00 76 12/06/16 23:00 98.3 83 18 144/80 95 12/06/16 23:00 83 12/06/16 22:05 95 21 12/06/16 19:00 95 12/06/16 19:00 97.8 95 22 165/84 95 12/06/16 17:06 96 21 12/06/16 15:00 109 12/06/16 15:00 98.5 100 18 159/96 98 12/06/16 14:16 100 18 159/74 98 Nasal Cannula 2 I/O 12/06/16 12/06/16 12/06/16 12/07/16 12/07/16 12/07/16 06:59 14:59 22:59 06:59 14:59 22:59 Intake Total 576 ml 417 ml Output Total 500 ml Balance 76 ml 417 ml Intake Oral 120 ml 250 ml IV Total 456 ml 167 ml Output Urine Total 500 ml # Voids 5 2 # Bowel Movements 0 0 (Gabby Monge MD R1) Result Diagram: 12/07/1642012/07/16420 Objective Remarks Last 48 hours Impressions Neck Magnetic Resonance Angiography 12/06/16812 Signed Impressions: Service Date/Time: Tuesday, December 06, 2016 10:04 - CONCLUSION: Normal examination. Blane Knott MD Head Magnetic Resonance Angiography 12/06/16812 Signed Impressions: Service Date/Time: Tuesday, December 06, 2016 10:04 - CONCLUSION: Slight atherosclerotic changes of distal branches bilaterally, otherwise unremarkable. Blane Knott MD Brain MRI 12/06/16812 Signed Impressions: Service Date/Time: Tuesday, December 06, 2016 10:04 - CONCLUSION: Acute infarction in the right parietal and temporal lobes without hemorrhage or mass effect. Blane nKott MD Head CT 12/06/16627 Signed Impressions: Service Date/Time: Tuesday, December 06, 2016 06:32 - CONCLUSION: Normal examination. Kwabena Lu MD Chest X-Ray 12/06/16627 Signed Impressions: Service Date/Time: Tuesday, December 06, 2016 06:46 - CONCLUSION: No acute cardiopulmonary disease and borderline cardiomegaly. Blane Knott MD (Gabby Monge MD R1) A/P Assessment and Plan 71-year-old male with history of atrial fibrillation and hypertension presents to the hospital with an acute CVA. MRI shows infarct of the right temporal and parietal lobes. Neurology and cardiology consulted. Blood pressure was in the 220s systolic, patient was placed on nicardipine drip in addition to continued home medications of enalapril, metoprolol, and amlodipine. Patient initially was treated with therapeutic Lovenox, however discontinued and started on pradaxa today. Echo pending. PT/OT assessment recommended wheeled walker and home PT. Patient to be transferred to the floor today. Discharge Planning Discharge likely tomorrow, pending set up of home health PT. Per patient, he may not require OT home health. (Gabby Monge MD R1) Attending Attestation Pt. examined and case discussed with resident physicians. I have read the above note and agree with the assessment and plan as discussed with me. I was involved in all medical decision making for this patient. David Duffy MD (David Duffy MD) Problem List: (1) Acute CVA (cerebrovascular accident) Status: Acute Plan: MRI verified with acute infarction in the right parietal and temporal lobes without hemorrhage or mass effect. - Neurology consulted - Blood pressure has been running 170s/100s this morning. For better blood pressure control, enalapril dose was increased to 20 twice a day, amlodipine 2.5 mg by mouth daily was added, - Echocardiogram result pending - PT/OT recommended home health PT. per patient, he may not need OT home health. -Therapeutic lovenox discontinued Started Pradaxa 150 mg BID PO today - Atorvastatin 40 mg by mouth daily - Transfer to the floor today - Monitor on telemetry - Neurochecks every 4 hours - Seizure precautions (2) Essential hypertension Status: Acute Plan: Pt's blood pressure up to 202/100 on admission. Takes enalapril and metoprolol at home. Last BP of 162/97. Plan to obtain better control of hypertension: Enalapril dose increased to 20 twice a day Add amlodipine 2.5 mg daily PO Continue metoprolol (3) Hypokalemia Status: Acute Plan: Today, potassium of 3.0 (3.6) - K-lyte x2 supplementation today -We'll monitor with BMP tomorrow (4) Atrial fibrillation Status: Chronic Plan: Pt with chronic history of atrial fibrillation (CHADSVASC 2). Taking Enalapril and Metoprolol at home. Currently on Aspirin 325mg daily. 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 -Continue ASA -Started PRADEXA 150 mg BID PO today -Weaned off nicardipine drip (5) FEN Plan: Fluids: none Electrolytes: wnl, continue to monitor Nutrition: Regular diet, mechanical soft per speech evaluation DVT ppx: On therapeutic anticoagulation (Gabby Monge MD R1) Problem Qualifiers (1) Atrial fibrillation: Qualified Code: I48.2 - Chronic atrial fibrillation Gabby Monge MD R1 Dec 07, 2016 14:23 David Duffy MD Dec 07, 2016 18:37 Plan: Fluids: none Electrolytes: wnl, continue to monitor Nutrition: NPO, until passes swallow study DVT ppx: Lovenox Problem Qualifiers (1) Atrial fibrillation: Qualified Code: I48.2 - Chronic atrial fibrillation Gabby Monge MD R1 Dec 07, 2016 14:23
[2016-12-07 15:00] VITALS: BP 136/90; PULSE 70; PULSE 93; RESP 18; TEMP 98.1; O2SAT 97
--- NOTE | 2016-12-07 16:51 | ECHRPT ---
Indication: CVA/TIA CONCLUSIONS Normal left ventricular size. Mild concentric left ventricular hypertrophy. The left ventricular systolic function is grossly normal on limited imaging. No regional wall motion abnormalities are present. Mild mitral annular calcification. [id number] mitral valve regurgitation. Aortic valve sclerosis is present. Mild aortic valve regurgitation. The pulmonary valve is not well visualized. BP: 148 / 75 HR: 112 Rhythm: Sinus MEASUREMENTS (Male / Female) Normal Values Technical Quality:Fair 2D ECHO LV Diastolic Diameter PLAX 4.3 cm 4.2 - 5.9 / 3.9 - 5.3 cm LV Systolic Diameter PLAX 2.7 cm IVS Diastolic Thickness 1.1 cm 0.6 - 1.0 / 0.6 - 0.9 cm LVPW Diastolic Thickness 1.1 cm 0.6 - 1.0 / 0.6 - 0.9 cm LV Relative Wall Thickness 0.5 LVOT Diameter 2.5 cm Aortic Root Diameter 3.9 cm LA Systolic Diameter LX 2.8 cm 3.0 - 4.0 / 2.7 - 3.8 cm M-MODE AV Cusp Separation MM 2.2 cm DOPPLER AV Peak Velocity 99.0 cm/s AV Peak Gradient 3.9 mmHg AV Mean Gradient 2.5 mmHg AV Velocity Time Integral 18.9 cm AI Peak Velocity 489.0 cm/s AI Peak Gradient 95.6 mmHg AI Pressure Half Time 449.5 ms LVOT Peak Velocity 75.8 cm/s LVOT Peak Gradient 2.3 mmHg LVOT Velocity Time Integral 11.4 cm LVOT Cardiac Index 2908.3 cm/minm AV Area Cont Eq vti 3.0 cm AV Area Cont Eq pk 3.8 cm Mitral E Point Velocity 123.8 cm/s LV E' Lateral Velocity 10.3 cm/s Mitral E to LV E' Lateral Ratio 12.0 LV E' Septal Velocity 8.1 cm/s Mitral E to LV E' Septal Ratio 15.2 PV Peak Velocity 56.2 cm/s PV Peak Gradient 1.3 mmHg FINDINGS LEFT VENTRICLE Normal left ventricular size. Mild concentric left ventricular hypertrophy. The left ventricular systolic function is grossly normal on limited imaging. No regional wall motion abnormalities are present. RIGHT VENTRICLE Normal right ventricular size and systolic function. LEFT ATRIUM The left atrial size is normal. RIGHT ATRIUM The right atrial size is normal. ATRIAL SEPTUM Normal atrial septal thickness without atrial level shunting by limited color doppler interrogation. AORTA The aortic root and proximal ascending aorta are normal in size on limited imaging. MITRAL VALVE Mild mitral annular calcification. [id number] mitral valve regurgitation. AORTIC VALVE Aortic valve sclerosis is present. Mild aortic valve regurgitation. TRICUSPID VALVE Structurally normal tricuspid valve. No tricuspid valve stenosis or regurgitation. PULMONARY VALVE The pulmonary valve is not well visualized. VESSELS The inferior vena cava is normal in size. PERICARDIUM No pericardial effusion. Kevin Fuchs MD, FACC, [facility] (Electronically Signed) Final Date:07 December 2016 16:50
[2016-12-07 19:00] VITALS: BP 136/86; PULSE 84; RESP 18; TEMP 97.9; O2SAT 96
[2016-12-07] MEDS: ATORVASTATIN 40 MG TAB PO SCH (20:37)
[2016-12-08 00:47] VITALS: BP 156/90; PULSE 86; RESP 18; TEMP 98.4; O2SAT 100
[2016-12-08 05:28] VITALS: BP 115/70; PULSE 75; RESP 18; TEMP 97.3; O2SAT 97
[2016-12-08] MEDS: INSULIN ASPART SUPPLEMENTAL SCALE SQ SCH ×2 (06:29→11:00)
[2016-12-08 08:00] VITALS: BP 173/83; PULSE 66; PULSE 91; RESP 18; TEMP 98.7; O2SAT 98
[2016-12-08] MEDS: ENALAPRIL MALEATE 10 MG TAB PO SCH (08:21)
[2016-12-08] MEDS: ALLOPURINOL 300 MG TAB PO SCH (08:21)
[2016-12-08] MEDS: METOPROLOL SUCCINATE 25 MG EXTENDED RELEASE TAB PO SCH (08:21)
[2016-12-08] MEDS: amLODIPine BESYLATE 5 MG TAB PO SCH (08:21)
[2016-12-08] MEDS: SODIUM CHLORIDE 0.9% FLUSH 5 ML FLUSH IV FLUSH SCH (08:37)
[2016-12-08] MEDS: DABIGATRAN ETEXILATE 150 MG CAP PO SCH (09:01)
[2016-12-08 09:20] LABS: BICARBONATE 26.1 MEQ/L (21.0-32.0); POTASSIUM 3.8 MEQ/L (3.5-5.1)
[2016-12-08 09:29] VITALS: BP 140/95; PULSE 77
--- NOTE | 2016-12-08 10:01 | HHI.FPPN ---
Subjective Remarks No acute events overnight. Vitals are within normal limits. BP currently stable at 140/95. Nicardipine drip discontinued yesterday. Pt ready to go home. will drive pt home today. Informed pt about setting him up with home health and walker. Pt seems hesitant about a walker. Denies weakness and pain. No complaints this AM. (Madina Jimenez MD R1) Objective Vitals Vital Signs Date Time Temp Pulse Resp B/P Pulse Ox O2 Delivery O2 Flow Rate FiO2 12/08/16 09:29 77 140/95 12/08/16 08:00 66 12/08/16 08:00 98.7 91 18 173/83 98 12/08/16 05:28 97.3 75 18 115/70 97 12/08/16 00:47 98.4 86 18 156/90 100 12/07/16 19:00 97.9 84 18 136/86 96 12/07/16 19:00 84 12/07/16 15:00 98.1 93 18 136/90 97 12/07/16 15:00 70 12/07/16 11:42 96 21 12/07/16 11:00 98.1 73 18 162/97 97 12/07/16 11:00 84 I/O 12/07/16 12/07/16 12/07/16 12/08/16 12/08/16 12/08/16 07:00 15:00 23:00 07:00 15:00 23:00 Intake Total 417 ml 840 ml 240 ml Balance 417 ml 840 ml 240 ml Intake Oral 250 ml 840 ml 240 ml IV Total 167 ml 0 ml # Voids 2 4 2 # Bowel Movements 0 2 (Madina Jimenez MD R1) Result Diagram: 12/07/16 0421 12/08/16 0753 Imaging Last Impressions Neck Magnetic Resonance Angiography 12/06/16812 Signed Impressions: Service Date/Time: Tuesday, December 06, 2016 10:04 - CONCLUSION: Normal examination. Blane Knott MD Head Magnetic Resonance Angiography 12/06/16812 Signed Impressions: Service Date/Time: Tuesday, December 06, 2016 10:04 - CONCLUSION: Slight atherosclerotic changes of distal branches bilaterally, otherwise unremarkable. Blane Knott MD Brain MRI 12/06/16812 Signed Impressions: Service Date/Time: Tuesday, December 06, 2016 10:04 - CONCLUSION: Acute infarction in the right parietal and temporal lobes without hemorrhage or mass effect. Blane Knott MD Head CT 12/06/16627 Signed Impressions: Service Date/Time: Tuesday, December 06, 2016 06:32 - CONCLUSION: Normal examination. Kwabena Lu MD Chest X-Ray 12/06/16627 Signed Impressions: Service Date/Time: Tuesday, December 06, 2016 06:46 - CONCLUSION: No acute cardiopulmonary disease and borderline cardiomegaly. Blane Knott MD Objective Remarks GENERAL: Well-nourished, well-developed patient. SKIN: Warm and dry. HEAD: Normocephalic. EYES: No scleral icterus. No injection or drainage. NECK: Supple, trachea midline. No JVD or lymphadenopathy. CARDIOVASCULAR: irregular rate and rhythm with murmur RESPIRATORY: Breath sounds equal bilaterally. No accessory muscle use. GASTROINTESTINAL: Abdomen soft, non-tender, nondistended. EXTREMITIES: No cyanosis, or edema. NEUROLOGICAL: Awake, alert, and oriented x 3. Non-focal. (Madina Jimenez MD R1) A/P Assessment and Plan 71-year-old male with history of atrial fibrillation and hypertension presents to the hospital with an acute CVA. MRI shows infarct of the right temporal and parietal lobes. Neurology and cardiology consulted. Blood pressure was in the 220s systolic on admission, patient was placed on nicardipine drip in addition to continued home medications of enalapril, metoprolol, and amlodipine. Pt recent blood pressures have been stable. Nicardipine drip discontinued. Pt will continue home meds for blood pressure control. Patient initially was treated with therapeutic Lovenox, however discontinued and started on pradaxa yesterday. Echo showed mild left ventricular hypertrophy, mild mitral calcification, aortic valve sclerosis, and mild aortic valve regurgitation. PT/ OT assessment recommended wheeled walker and home PT. Awaiting case management for home health nursing eval and wheeled walker before discharge. Discharge Planning Discharge likely tomorrow, pending set up of home health PT. Per patient, he may not require OT home health. (Madina Jimenez MD R1) Attending Attestation Pt. examined and case discussed with resident physicians I have read the above note and agree with the assessment/plan as discussed with me I was involved in all medical decision making for this patient David Duffy MD (David Duffy MD) Problem List: (1) Acute CVA (cerebrovascular accident) Status: Acute Plan: MRI verified with acute infarction in the right parietal and temporal lobes without hemorrhage or mass effect. - Neurology consulted - Blood pressure has been running 170s-140s/100s this morning. - Echocardiogram showed mild left ventricular hypertrophy, mild mitral calcification, aortic valve sclerosis, and mild aortic valve regurgitation. - PT/OT recommended home health PT. per patient, he may not need OT home health. -Therapeutic lovenox discontinued 12/07 Continue Pradaxa 150 mg BID PO today - Atorvastatin 40 mg by mouth daily - Monitor on telemetry - Neurochecks every 4 hours - Seizure precautions (2) Essential hypertension Status: Acute Plan: Pt's blood pressure up to 202/100 on admission. Takes enalapril and metoprolol at home. Last BP of 140/95 Plan to obtain better control of hypertension: continue Enalapril 20mg twice a day -continue amlodipine 2.5 mg daily PO Continue metoprolol (3) Hypokalemia Status: Acute Plan: Today, potassium of 3.8 (4) Atrial fibrillation Status: Chronic Plan: Pt with chronic history of atrial fibrillation (CHADSVASC 2). Taking Enalapril and Metoprolol at home. Currently on Aspirin 325mg daily. 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 -Continue ASA -Continue PRADEXA 150 mg BID PO today (5) FEN Status: Chronic Plan: Fluids: none Electrolytes: wnl, continue to monitor Nutrition: Regular diet, mechanical soft per speech evaluation DVT ppx: On therapeutic anticoagulation (Madina Jimenez MD R1) Problem Qualifiers (1) Atrial fibrillation: Qualified Code: I48.2 - Chronic atrial fibrillation Madina Jimenez MD R1 Dec 08, 2016 10:01 David Duffy MD Dec 08, 2016 16:05
--- NOTE | 2016-12-08 10:15 | HHI.FF ---
Face to Face Verification Diagnosis: (1) Acute CVA (cerebrovascular accident) Physical Therapy Order: Evaluate and Treat, Improve ambulation, Strength and gait training Occupational Therapy Order: Evaluate and Treat, Improve ADL, Gross motor coordination, Fine motor coordination I have seen patient Filippo Bartlett on 12/08/16. My clinical findings support the need for the requested home health care services because: Ltd mobility - disease progression Deconditioned w/ increased weakness I certify that my clinical findings support that this patient is homebound because: Unsteady gait/balance Unsafe to leave home unassisted Rufus Chung MD R1 Dec 08, 2016 10:15
[2016-12-08] MEDS ORDERED: WALKER WHEELS/F1 MIS (10:16)
--- NOTE | 2016-12-08 11:29 | PD.CARD.PN ---
Subjective Subjective Remarks PT without complaints Objective Medications Current Medications Medications (Trade) Dose Ordered Sig/Chandra Route Start Time Stop Time Status Last Admin (NS Flush) 2 ml BID IV FLUSH 12/06/16 21:00 12/08/16 08:37 (NS Flush) 2 ml UNSCH PRN IV FLUSH 12/06/16 10:00 (Lipitor) 40 mg HS PO 12/06/16 21:00 12/07/16 20:37 (NovoLOG SUPPLEMENTAL SCALE) 1 ACHS SQ 12/06/16 11:00 (D50w (Vial) Inj) 50 ml UNSCH PRN IV PUSH 12/06/16 10:00 (Glucagon Inj) 1 mg UNSCH PRN OTHER 12/06/16 10:00 (Tylenol) 325 mg Q4H PRN PO 12/06/16 10:15 Allopurinol 300 mg 300 mg DAILY PO 12/07/16 09:00 12/08/16 08:21 (Cardene Inj/NS 250 ml Inj) 260 ml @ 0 mls/hr TITRATE IV 12/06/16 11:45 12/07/16 00:22 (Toprol Xl) 37.5 mg DAILY PO 12/07/16 09:00 12/08/16 08:21 (Pill Splitter) 1 ea UNSCH PRN OTHER 12/06/16 14:15 (Vasotec) 20 mg BID PO 12/07/16 21:00 12/08/16 08:21 (Pradaxa) 150 mg BID PO 12/07/16 10:30 12/08/16 09:01 (Norvasc) 2.5 mg DAILY PO 12/07/16 10:30 12/08/16 08:21 Vital Signs / I&O Vital Signs Date Time Temp Pulse Resp B/P Pulse Ox O2 Delivery O2 Flow Rate FiO2 12/08/16 09:29 77 140/95 12/08/16 08:00 66 12/08/16 08:00 98.7 91 18 173/83 98 12/08/16 05:28 97.3 75 18 115/70 97 12/08/16 00:47 98.4 86 18 156/90 100 12/07/16 19:00 97.9 84 18 136/86 96 12/07/16 19:00 84 12/07/16 15:00 98.1 93 18 136/90 97 7/23/17 15:00 70 12/07/16 11:42 96 21 I/O 12/07/16 12/07/16 12/07/16 12/08/16 12/08/16 12/08/16 06:59 14:59 22:59 06:59 14:59 22:59 Intake Total 417 ml 840 ml 240 ml Balance 417 ml 840 ml 240 ml Intake Oral 250 ml 840 ml 240 ml IV Total 167 ml 0 ml # Voids 2 4 2 # Bowel Movements 0 2 Physical Exam GENERAL: Well developed, well nourished. No acute distress. HEENT: Jugular venous pressure is normal. CHEST: Lungs clear to auscultation bilaterally. Unlabored respiratory effort. CARDIAC: irregular rate and rhythm without S3, S4, or murmur. ABDOMEN: Soft, nontender, no hepatosplenomegaly. Bowel sounds present. EXTREMITIES: No clubbing, cyanosis, or edema. Laboratory Laboratory Tests Test 12/07/16 12/08/16 22:20 07:53 Nasal Screen MRSA (PCR) MRSA NOT DETECTED Sodium Level 138 MEQ/L Potassium Level 3.8 MEQ/L Chloride Level 106 MEQ/L Carbon Dioxide Level 26.1 MEQ/L Anion Gap 6 MEQ/L Blood Urea Nitrogen 12 MG/DL Creatinine 0.75 MG/DL Estimat Glomerular Filtration 103 ML/MIN Rate Random Glucose 90 MG/DL Calcium Level 9.3 MG/DL Assessment and Plan Assessment and Plan AF- good rate control - on pradaxa; HTN-reasonable Hypokalemia- supplement potassium and bmp in am CVA- per neruology Dispo- ok for d/c from CV perspective Terra Patrick MD Dec 08, 2016 11:28
[2016-12-08 12:00] VITALS: BP 161/83; PULSE 86; RESP 17; TEMP 98.4; O2SAT 97
--- NOTE | 2016-12-08 13:45 | EKG ---
Date Performed: 12/06/2016 Time Performed: 12:42:12 PTAGE: 71 years EKG: ATRIAL FIBRILLATION WITH RAPID VENTRICULAR RESPONSE WITH ABERRANT CONDUCTION OR VENTRICULAR PREMATURE COMPLEXES POSSIBLE INFERIOR MYOCARDIAL INFARCTION - age indeterminate Consider anterolater al ischemia ABNORMAL RHYTHM ECG PREVIOUS TRACING : 12/06/2016 06.25 DOCTOR: Kevin Fuchs Interpretating Date/Time 12/08/2016 13:44:36
[2016-12-08] MEDS ORDERED: METO25TA6 PO (14:41)
[2016-12-08] MEDS ORDERED: PRAD150C PO (14:41)
[2016-12-08] MEDS ORDERED: ATOR40TA16 PO (14:41)
[2016-12-08] MEDS ORDERED: AMLO5 PO (14:41)
--- NOTE | 2016-12-08 15:05 | HHI.FF ---
Face to Face Verification Diagnosis: (1) Acute CVA (cerebrovascular accident) Physical Therapy Order: Evaluate and Treat, Improve ambulation, Strength and gait training Occupational Therapy Order: Evaluate and Treat, Improve ADL, Gross motor coordination, Fine motor coordination Home Health Nursing Order: Nursing assessment with vital signs I have seen patient Filippo Bartlett on 12/08/16. My clinical findings support the need for the requested home health care services because: Ltd mobility - disease progression Deconditioned w/ increased weakness I certify that my clinical findings support that this patient is homebound because: Unsteady gait/balance Unsafe to leave home unassisted Rufus Chung MD R1 Dec 08, 2016 15:05
--- NOTE | 2016-12-09 13:56 | HHI.DS ---
Discharge Summary Admission Date Dec 06, 2016 at 09:19 Discharge Date: Dec 08, 2016 Admitting Diagnosis acute CVA (1) Acute CVA (cerebrovascular accident) Diagnosis: Principal Plan: MRI verified with acute infarction in the right parietal and temporal lobes without hemorrhage or mass effect. - Neurology consulted - Blood pressure has been running 170s-140s/100s this morning. - Echocardiogram showed mild left ventricular hypertrophy, mild mitral calcification, aortic valve sclerosis, and mild aortic valve regurgitation. - PT/OT recommended home health PT. per patient, he may not need OT home health. -Therapeutic lovenox discontinued 12/07 Continue Pradaxa 150 mg BID PO today - Atorvastatin 40 mg by mouth daily - Monitor on telemetry - Neurochecks every 4 hours - Seizure precautions (2) Essential hypertension Diagnosis: Secondary Plan: Pt's blood pressure up to 202/100 on admission. Takes enalapril and metoprolol at home. Last BP of 140/95 Plan to obtain better control of hypertension: continue Enalapril 20mg twice a day -continue amlodipine 2.5 mg daily PO Continue metoprolol (3) Hypokalemia Diagnosis: Secondary Plan: Today, potassium of 3.8 (4) Atrial fibrillation Diagnosis: Secondary Plan: Pt with chronic history of atrial fibrillation (CHADSVASC 2). Taking Enalapril and Metoprolol at home. Currently on Aspirin 325mg daily. 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 -Continue ASA -Continue PRADEXA 150 mg BID PO today (5) FEN Diagnosis: Secondary Plan: Fluids: none Electrolytes: wnl, continue to monitor Nutrition: Regular diet, mechanical soft per speech evaluation DVT ppx: On therapeutic anticoagulation Brief History 71-year-old male presented to the emergency department after a fall at home and noted left-sided weakness. He was apparently in normal health at approximately 1 AM when he went to bed, at 545 this morning he attempted to get out of bed and fell out of bed, hitting the side of his head and knee on the rug. Patient denies any loss of consciousness. At this time, states that his speech was slurred and that he was dragging his left foot. He also took his blood pressure at that time and stated that it was 180/100 and therefore brought him into the emergency department for evaluation of stroke. Since admission to the emergency department, states that his speech has returned to normal but continues to notice left-sided facial droop. Filippo himself has stated that he feels well at this time, that he feels back to normal. He denies any unilateral weakness, he denies any headaches, denies vision changes or double vision, denies nausea or vomiting, denies chest pain or palpitations. He has been out of bed and walk to the bathroom on his own without any difficulty. He has a history of atrial fibrillation for which she follows with Dr. Patrick. It had been recommended to him to be on anticoagulant therapy, however he has refused this in the past and is currently only taking a baby aspirin daily. He also has been instructed that he could benefit from statin therapy but has refused this in the past as well. Otherwise he has been a relatively healthy gentleman and has been very active. CBC/BMP: 12/07/16 0421 12/08/16 0753 Significant Findings Laboratory Tests Test 12/06/16 12/07/16 18:52 04:21 Total Bilirubin 1.1 MG/DL (0.2-1.0) Direct Bilirubin 0.3 MG/DL (0.0-0.2) Troponin I LESS THAN 0.02 NG/ML (0.02-0.05) Neutrophils (%) (Auto) 81.5 % (16.0-70.0) Neutrophils # (Auto) 8.6 TH/MM3 (1.8-7.7) Potassium Level 3.0 MEQ/L (3.5-5.1) LDL Cholesterol 108 MG/DL (0-99) PE at Discharge GENERAL: Well-nourished, well-developed patient. SKIN: Warm and dry. HEAD: Normocephalic. EYES: No scleral icterus. No injection or drainage. NECK: Supple, trachea midline. No JVD or lymphadenopathy. CARDIOVASCULAR: irregular rate and rhythm with murmur RESPIRATORY: Breath sounds equal bilaterally. No accessory muscle use. GASTROINTESTINAL: Abdomen soft, non-tender, nondistended. EXTREMITIES: No cyanosis, or edema. NEUROLOGICAL: Awake, alert, and oriented x 3. Non-focal. Pt Condition on Discharge: Stable Discharge Disposition: Disch w/ Home Health Serv Discharge Instructions DIET: Follow Instructions for: Heart Healthy Diet Activities you can perform: Weight Bearing as Andrew Other Activity Instructions: Continue to work with physical therapy at home to build your strength. Caution walking when unassisted in order to prevent falls. Follow up Referrals: Cardiology - 1 Week PCP Follow-up - 1 Week New Medications: Walker with Front Wheels (Walker with Front Wheels) 1 Mis Mis 1 EA .ROUTE DIRECTED #1 Ref 0 EA Amlodipine (Norvasc) 5 Mg Tab 2.5 MG PO DAILY #30 TAB Atorvastatin (Atorvastatin) 40 Mg Tab 40 MG PO HS #30 TAB Dabigatran (Pradaxa) 150 Mg Cap 150 MG PO BID #60 CAP Metoprolol Succinate ER 24 HR (Metoprolol Succinate ER 24 HR) 25 Mg Tab 37.5 MG PO DAILY #30 TAB Continued Medications: Allopurinol (Allopurinol) 300 Mg Tab 300 MG PO DAILY Gout #90 Ref 0 TAB Aspirin (Aspirin) 325 Mg Tab 325 MG PO DAILY #30 Ref 0 TAB Enalapril (Enalapril) 20 Mg Tab 20 MG PO BID #180 Ref 1 TAB Glucosamine (Glucosamine) 750 Mg Cap 750 MG PO BID Herbal Supplements Ref 0 CAP Indomethacin (Indomethacin) 50 Mg Cap 50 MG PO TID Take with food, milk, or antacids to decrease stomach adverse effects. #90 Ref 0 CAP Multiple Vitamin (Multiple Vitamin) 1 Tab 1 TAB PO DAILY Nutritional Supplement Ref 0 TAB [place]leaf-3 Fatty Acids (Fish Oil) 1,000 Mg Cap Discontinued Medications: Fenofibrate (Tricor) 145 Mg Tab 145 MG PO DAILY Takw with food. #90 Ref 1 TAB Metoprolol Succinate ER 24 HR (Metoprolol Succinate ER 24 HR) 25 Mg Tab 25 MG PO DAILY using 1/2 tab tid -38mg/d total dose #135 Ref 0 TAB Rufus Chung MD R1 Dec 09, 2016 13:56
== END 2016-12-08 16:25 | disposition home health service (06) | DRG 66 ==
LOC: NEPE 06:07 → NEDA 09:19 → HCVR 14:22 → N05B 12-07 22:44
PROVIDERS: ADMIT Family Medicine; ATTEND Family Medicine
DX: I63.9 Cerebral infarction, unspecified (principal); I48.2 Chronic atrial fibrillation; I10 Essential (primary) hypertension; E78.5 Hyperlipidemia, unspecified; M19.90 Unspecified osteoarthritis, unspecified site; M10.9 Gout, unspecified; E87.6 Hypokalemia; R29.703 NIHSS score 3; Z79.899 Other long term (current) drug therapy; Z79.82 Long term (current) use of aspirin; Z87.891 Personal history of nicotine dependence; W06.XXXA Fall from bed, initial encounter; Y92.009 Unspecified place in unspecified non-institutional (private) residence as the place of occurrence of the external cause
CPT/HCPCS: 70450; 70544; 70548; 70551; 71010; 80048; 80061; 80076; 80307; 81001; 82550; 82948; 83036; 84484; 85025; 85610; 85730; 87641; 93005; 93306; 96365; 96366; A9579; J1650; J7050

== ENCOUNTER → 2017-10-22 | Outpatient (CLI) | payer MEDICARE, BC ==
[~2017-10-22] MED LIST changes: +ASPI-183 PO; -ASPI325T PO; +ATOR40TA16 PO; -FENO50TA PO; +FURO20TA PO; -INDO50CA PO; +KETOC2%T TOPICAL; +METO1TAB42 PO; -METO25TA6 PO; -MULT1TAB84 PO; +MULTTAB67 PO; +PRAD150C PO
[2017-10-22 11:11] LABS: HEMATOCRIT 44.9 % (39.0-51.0); HEMOGLOBIN 15.3 GM/DL (13.0-17.0); MEAN CELL VOLUME 96.8 FL (80.0-100.0); MEAN CORPUSCULAR HGB CONC 34.1 % (32.0-36.0); MEAN PLATELET VOLUME 8.6 FL (7.0-11.0); PLATELET COUNT 158 TH/MM3 (150-450); RED BLOOD COUNT 4.64 MIL/MM3 (4.50-5.90); RED CELL DISTRIBUTION WIDTH 13.4 % (11.6-17.2); WHITE BLOOD COUNT 7.2 TH/MM3 (4.0-11.0)
[2017-10-22 11:28] LABS: ALT (GPT) 32 U/L (12-78); CHOLESTEROL 127 MG/DL (120-200)
[2017-10-22 11:31] LABS: ALKALINE PHOSPHATASE 63 U/L (45-117); CHOLESTEROL/ HDL RATIO 1.96 RATIO; HDL CHOLESTEROL 64.5 MG/DL (40.0-60.0); LDL CHOLESTEROL 51 MG/DL (0-99); TOTAL BILIRUBIN ADULT 1.8 MG/DL (0.2-1.0); TOTAL PROTEIN 7.4 GM/DL (6.4-8.2); TRIGLYCERIDES 58 MG/DL (42-150)
[2017-10-22 11:34] LABS: ALBUMIN 3.7 GM/DL (3.4-5.0); AST (GOT) 24 U/L (15-37); BICARBONATE 27.8 MEQ/L (21.0-32.0); BLOOD UREA NITROGEN 8 MG/DL (7-18); CHLORIDE 105 MEQ/L (98-107); CREATININE 0.69 MG/DL (0.60-1.30); GLOMERULAR FILTRATION RATE 113 ML/MIN (>89); GLUCOSE,FASTING 92 MG/DL (74-99); SODIUM (NA) 142 MEQ/L (136-145)
== END ==
LOC: CLAB 10:44
PROVIDERS: ATTEND Family Medicine
DX: E78.2 Mixed hyperlipidemia (principal); I10 Essential (primary) hypertension
CPT/HCPCS: 36415; 80053; 80061; 85027